=== PATIENT | male | born 1985 | race Caucasian/White ===

== ENCOUNTER → 2018-06-30 | Outpatient (CLI) | payer OTHER ==
--- NOTE | 2018-06-30 18:24 | KCIC ---
PQRS Compliance Statement: One or more of the following individualized dose reduction techniques were utilized for this examination: 1. Automated exposure control 2. Adjustment of the mA and/or kV according to patient size 3. Use of iterative reconstruction technique CT HEAD AND MAXILLOFACIAL WITHOUT CONTRAST History: Chronic headaches, left frontal sinus headache. Congestion. History of left ear surgery with prosthetic disease. Comparison: CT IAC without contrast July 19, 2014. Procedure: Axial images are obtained of the head from the skull base through the vertex without IV contrast. Helical CT imaging of the facial bones is performed without IV contrast. Findings: The ventricles and sulci are normal for the patient's age. No mass-effect, midline shift, hemorrhage or obvious acute infarction is identified. Basilar cisterns are patent. Bone windows demonstrate no significant calvarial abnormality. No acute facial bone fracture. Minimal mucosal thickening inferiorly in the left maxillary sinus and anteriorly in the right sphenoid sinus. The other paranasal sinuses are clear. No air-fluid level. Bony nasal septum is mostly midline. The ostiomeatal complexes are patent. There is incidental right kaela bullosa. Post surgical change left mastoid air cells. Right mastoid air cells are opacified. These findings are stable. IMPRESSION: 1. No acute intracranial abnormality. 2. Paranasal sinuses are mostly clear. The ostiomeatal complexes are patent. Electronically signed by: Lucio Castro MD (06/30/2018 6:19 PM) [id number]
== END | disposition home or self-care (01) ==
LOC: KCIC CT 09:59
PROVIDERS: ATTEND Family Medicine
DX: R51 Headache (principal); Z98.890 Other specified postprocedural states
CPT/HCPCS: 70450; 70486